=== PATIENT | female | born 1990 | race Caucasian/White ===

== ENCOUNTER 2017-05-02 13:02 | Emergency (ER) | payer OTHER ==
[2017-05-02 13:07] VITALS: BP 123/67; PULSE 74; RESP 20; TEMP 98.5; O2SAT 96
[2017-05-02] MEDS ORDERED: SODIUM CHLOR 0.9% 1000 ML INJ 1,000 ML IV ONE (13:24)
[2017-05-02] MEDS ORDERED: diphenhydrAMINE HCL 50 MG/ML VIAL IVP ONE (13:30)
[2017-05-02] MEDS ORDERED: METOCLOPRAMIDE HCL 10 MG/2 ML VIAL IVP ONE (13:30)
[2017-05-02] MEDS ORDERED: SODIUM CHLORIDE 0.9% FLUSH 10 ML FLUSH IVF PRN (13:30)
[2017-05-02] MEDS ORDERED: ACETAMINOPHEN 325 MG TAB PO ONE (13:30)
[2017-05-02 13:37] VITALS: O2SAT 98
[2017-05-02 13:42] LABS: AUTOMATED NEUTROPHIL # 5.8 TH/MM3 (1.8-7.7); BASOPHIL # 0.1 TH/MM3 (0-0.2); BASOPHIL % 0.6 % (0.0-2.0); EOSINOPHIL % 0.4 % (0.0-4.0); HEMATOCRIT 33.7 % (35.0-46.0); HEMOGLOBIN 11.2 GM/DL (11.6-15.3); LYMPH % 25.8 % (9.0-44.0); LYMPHOCYTE # 2.3 TH/MM3 (1.0-4.8); MEAN CORPUSCULAR HEMOGLOBIN 28.9 PG (27.0-34.0); MEAN CORPUSCULAR HGB CONC 33.2 % (32.0-36.0); MEAN PLATELET VOLUME 8.4 FL (7.0-11.0); MONO % 8.5 % (0.0-8.0); MONOCYTE # 0.8 TH/MM3 (0-0.9); NEUT % 64.7 % (16.0-70.0); PLATELET COUNT 288 TH/MM3 (150-450); RED BLOOD COUNT 3.88 MIL/MM3 (4.00-5.30)
[2017-05-02 13:51] LABS: CHLORIDE 106 MEQ/L (98-107); SODIUM (NA) 136 MEQ/L (136-145)
[2017-05-02 13:55] LABS: CALCIUM 8.3 MG/DL (8.5-10.1)
[2017-05-02 13:56] LABS: ALBUMIN 2.8 GM/DL (3.4-5.0); BICARBONATE 25.3 MEQ/L (21.0-32.0); BLOOD UREA NITROGEN 7 MG/DL (7-18); GLUCOSE,RANDOM 76 MG/DL (74-106)
[2017-05-02 13:59] LABS: ALT (GPT) 14 U/L (10-53); AST (GOT) 14 U/L (15-37); CREATININE 0.45 MG/DL (0.50-1.00); GLOMERULAR FILTRATION RATE 168 ML/MIN (>89)
[2017-05-02 14:00] LABS: TOTAL BILIRUBIN ADULT 0.2 MG/DL (0.2-1.0); TOTAL PROTEIN 7.2 GM/DL (6.4-8.2)
[2017-05-02 14:01] LABS: ALKALINE PHOSPHATASE 75 U/L (45-117)
--- NOTE | 2017-05-02 14:32 | RADRPT ---
EXAM DATE/TIME: 05/02/2017 14:10 [place] COMPARISON: No previous studies available for comparison. INDICATIONS : Cephalgia x 3 days. RADIATION DOSE: 63.40 CTDIvol (mGy) MEDICAL HISTORY : None SURGICAL HISTORY : section. ENCOUNTER: Initial ACUITY: 3 days PAIN SCALE: 8/10 LOCATION: cranial TECHNIQUE: Multiple contiguous axial images were obtained of the head. Using automated exposure control and adj ustment of the mA and/or kV according to patient size, radiation dose was kept as low as reasonably a chievable to obtain optimal diagnostic quality images. DICOM format image data is available electro nically for review and comparison. FINDINGS: CEREBRUM: The ventricles are normal for age. No evidence of midline shift, mass lesion, hemorrhage or acute in farction. No extra-axial fluid collections are seen. POSTERIOR FOSSA: The cerebellum and brainstem are intact. The 4th ventricle is midline. The cerebellopontine angle i s unremarkable. EXTRACRANIAL: The visualized portion of the orbits is intact. SKULL: The calvaria is intact. No evidence of skull fracture. CONCLUSION: 1. No acute intracranial abnormality identified. Coy Galarza MD on May 02, 2017 at 14:30 Board Certified Radiologist. This report was verified electronically.
--- NOTE | 2017-05-02 14:39 | PD ---
HPI Chief Complaint: Headache Time Seen by Provider: 13:21 Travel History International Travel<30 days: No Contact w/Intl Traveler<30days: No Traveled to known affect area: No History of Present Illness HPI 26-year-old female known to be 22 weeks 2 para 1 arrives complaining of headache for 4 days. It started at rest. Maximum intensity started within the first few hours. The pain is worse when she stands up after sitting for long period of time. Location is back in the head. No vomiting or fever. No abdominal pain. No vaginal bleeding or discharge PFSH Past Medical History Hypertension: Yes Tetanus Vaccination: > 5 Years Influenza Vaccination: No ?: : 2 Para: 1 Miscarriage: 0 : 0 Past Surgical History Section: Yes Other Surgery: Yes Social History Alcohol Use: No Tobacco Use: No Substance Use: No Allergies-Medications (Allergen,Severity, Reaction): Coded Allergies: No Known Allergies (Unverified , 05/02/17) Reported Meds & Prescriptions Reported Meds & Active Scripts Active Keflex (Cephalexin) 500 Mg Cap 500 Mg PO Q8H 5 Days Review of Systems Except as stated in HPI: all other systems reviewed are Neg Physical Exam Narrative GENERAL: 26-year-old female well-nourished well-developed Vital Signs Date Time Temp Pulse Resp B/P (MAP) Pulse Ox O2 Delivery O2 Flow Rate FiO2 05/02/17 13:37 98 Room Air 05/02/17 13:22 Room Air 05/02/17 13:07 98.5 74 20 123/67 (85) 96 Focused neurologic exam: Pupils equal round and reactive. The patient has normal cranial nerves normal motor function normal cerebellar function. There is no neck stiffness or rigidity. SKIN: Warm and dry. HEAD: Atraumatic. Normocephalic. EYES: Pupils equal and round. No scleral icterus. No injection or drainage. ENT: No nasal bleeding or discharge. Mucous membranes pink and moist. NECK: Trachea midline. No JVD. CARDIOVASCULAR: Regular rate and rhythm. RESPIRATORY: No accessory muscle use. Clear to auscultation. Breath sounds equal bilaterally. GASTROINTESTINAL: Gravid abdomen. No focus of tenderness. MUSCULOSKELETAL: Extremities without clubbing, cyanosis, or edema. No obvious deformities. NEUROLOGICAL: Awake and alert. No obvious cranial nerve deficits. Motor grossly within normal limits. Five out of 5 muscle strength in the arms and legs. Normal speech. PSYCHIATRIC: Appropriate mood and affect; insight and judgment normal. Data Data Last Documented VS Vital Signs Date Time Temp Pulse Resp B/P (MAP) Pulse Ox O2 Delivery O2 Flow Rate FiO2 05/02/17 15:19 05/02/17 14:40 62 16 98 Room Air 05/02/17 13:07 98.5 Orders Orders Complete Blood Count With Diff (05/02/17 13:24) Comprehensive Metabolic Panel (05/02/17 13:24) Prothrombin Time / Inr (Pt) (05/02/17 13:24) Act Partial Throm Time (Ptt) (05/02/17 13:24) Ct Brain W/O Iv Contrast(Rout) (05/02/17 13:24) Ecg Monitoring (05/02/17 13:24) Iv Access Insert/Monitor (05/02/17 13:24) Oximetry (05/02/17 13:24) Sodium Chloride 0.9% Flush (Ns Flush) (05/02/17 13:30) Diphenhydramine Inj (Benadryl Inj) (05/02/17 13:30) Metoclopramide Inj (Reglan Inj) (05/02/17 13:30) Sodium Chlor 0.9% 1000 Ml Inj (Ns 1000 M (05/02/17 13:24) Acetaminophen (Tylenol) (05/02/17 13:30) Ed Discharge Order (05/02/17 14:40) Urinalysis - C+S If Indicated (05/02/17 14:50) Urine Culture (05/02/17 14:50) Labs Laboratory Tests Test 05/02/17 13:30 05/02/17 14:50 White Blood Count 9.0 TH/MM3 Red Blood Count 3.88 MIL/MM3 Hemoglobin 11.2 GM/DL Hematocrit 33.7 % Mean Corpuscular Volume 87.0 FL Mean Corpuscular Hemoglobin 28.9 PG Mean Corpuscular Hemoglobin Concent 33.2 % Red Cell Distribution Width 13.0 % Platelet Count 288 TH/MM3 Mean Platelet Volume 8.4 FL Neutrophils (%) (Auto) 64.7 % Lymphocytes (%) (Auto) 25.8 % Monocytes (%) (Auto) 8.5 % Eosinophils (%) (Auto) 0.4 % Basophils (%) (Auto) 0.6 % Neutrophils # (Auto) 5.8 TH/MM3 Lymphocytes # (Auto) 2.3 TH/MM3 Monocytes # (Auto) 0.8 TH/MM3 Eosinophils # (Auto) 0.0 TH/MM3 Basophils # (Auto) 0.1 TH/MM3 CBC Comment DIFF FINAL Differential Comment Prothrombin Time 10.0 SEC Prothromb Time International Ratio 1.0 RATIO Activated Partial Thromboplast Time 25.0 SEC Blood Urea Nitrogen 7 MG/DL Creatinine 0.45 MG/DL Random Glucose 76 MG/DL Total Protein 7.2 GM/DL Albumin 2.8 GM/DL Calcium Level 8.3 MG/DL Alkaline Phosphatase 75 U/L Aspartate Amino Transf (AST/SGOT) 14 U/L Alanine Aminotransferase (ALT/SGPT) 14 U/L Total Bilirubin 0.2 MG/DL Sodium Level 136 MEQ/L Potassium Level 4.0 MEQ/L Chloride Level 106 MEQ/L Carbon Dioxide Level 25.3 MEQ/L Anion Gap 5 MEQ/L Estimat Glomerular Filtration Rate 168 ML/MIN Urine Color YELLOW Urine Turbidity CLOUDY Urine pH 8.0 Urine Specific [place] 1.015 Urine Protein NEG mg/dL Urine Glucose (UA) NEG mg/dL Urine Ketones NEG mg/dL Urine Occult Blood NEG Urine Nitrite NEG Urine Bilirubin NEG Urine Leukocyte Esterase NEG Urine WBC 9-14 /hpf Urine WBC Clumps FEW Urine Squamous Epithelial Cells > 8 /hpf Urine Amorphous Sediment LARGE Urine Bacteria FEW /hpf Urine Mucus FEW /lpf Microscopic Urinalysis Comment CULTURE INDICATED MDM Medical Decision Making Medical Screen Exam Complete: Yes Emergency Medical Condition: Yes Medical Record Reviewed: Yes Differential Diagnosis Intracranial hemorrhage, sinus thrombosis, migraine, eclampsia or preeclampsia, PRESS Narrative Course CBC & BMP Diagram 05/02/17 13:30 Total Protein 7.2, Albumin 2.8 L, Calcium Level 8.3 L, Alkaline Phosphatase 75, Aspartate Amino Transf (AST/SGOT) 14 L, Alanine Aminotransferase (ALT/SGPT) 14, Total Bilirubin 0.2 UA: UTI present; Keflex prescribed Head CT: No acute pathology Reglan Tylenol IV fluids and Benadryl given. Patient reports feeling much better. The patient is resting comfortably and feels better, is alert and in no distress. The patients results and examination findings were discussed. The repeat examination is unremarkable and benign. The history, exam, diagnostic testing, and current condition do not suggest any significant pathology to warrant further testing, continued ED treatment, admission, or surgical evaluation at this point. The vital signs have been stable. The patient does not have uncontrollable pain, intractable vomiting, or other significant symptoms. The patient's condition is stable and appropriate for discharge. The patient will pursue further outpatient evaluation with a primary care physician or other designated or consulting physician as indicated in the discharge instructions. The patient expressed understanding and was agreeable with this plan. Diagnosis Primary Impression: Migraine Qualified Codes: G43.909 - Migraine, unspecified, not intractable, without status migrainosus Additional Impression: Qualified Codes: Z3A.22 - 22 weeks gestation of Referrals: Laly Mcclendon MD 2 days Med/Other Pt SpecificInfo: Prescription(s) given Scripts Cephalexin (Keflex) 500 Mg Cap 500 MG PO Q8H for Infection for 5 Days, #15 CAP 0 Refills Prov: Coy Lance MD 05/02/17 Disposition: 01 DISCHARGE HOME Condition: Stable Coy Lance MD May 02, 2017 14:39
[2017-05-02 14:40] VITALS: BP 102/51; PULSE 62; RESP 16; O2SAT 98
[2017-05-02 15:00] LABS: BILIRUBIN, URINE NEG (NEG); BLOOD, URINE NEG (NEG); GLUCOSE,URINE NEG (NEG); KETONE, URINE NEG (NEG); NITRITE,URINE NEG (NEG); URINE LEUKOCYTE ESTERASE NEG (NEG)
[2017-05-02 15:05] LABS: URINE COLOR YELLOW (YELLW/STRAW)
[2017-05-02 15:07] LABS: AMORPHOUS SEDIMENT, URINE LARGE; BACTERIA, URINE FEW /hpf; MUCUS URINE FEW /lpf (OCC); SQUAMOUS EPITHELIAL CELL URINE > 8 /hpf (0-5); WHITE BLOOD CELL CLUMPS FEW
[2017-05-02] MEDS ORDERED: CEPH-460 PO (15:13)
== END 2017-05-02 15:24 | disposition home or self-care (01) ==
LOC: PHED 13:02
DX: O23.42 Unspecified infection of urinary tract in pregnancy, second trimester (principal); G43.909 Migraine, unspecified, not intractable, without status migrainosus; Z3A.22 22 weeks gestation of pregnancy
CPT/HCPCS: 70450; 80053; 81001; 85025; 85610; 85730; 87086; 96361; 96374; 96375; 99284; J1200; J2765; J7030